=== PATIENT | female | born 1935 | race Caucasian/White ===

== ENCOUNTER → 2017-09-09 | Outpatient (CLI) | payer OTHER ==
[2015-10-29 11:16] VITALS: BP 131/61
[2017-09-09 09:23] LABS: BASOPHILS # (AUTO) 0.1 X10^3/uL (0.0-0.1); EOSINOPHILS # (AUTO) 0.2 x10^3/uL (0.0-0.2); EOSINOPHILS % (AUTO) 1.9 % (0.9-2.9); HEMATOCRIT 33.1 % (36.0-47.0); HEMOGLOBIN 10.7 g/dL (12.0-16.0); LYMPHOCYTES # (AUTO) 2.2 X10^3/uL (1.3-2.9); LYMPHOCYTES % (AUTO) 26.7 % (21.0-51.0); MEAN CORPUSCULAR HEMOGLOBIN 23.8 pg (27.0-34.0); MEAN CORPUSCULAR HGB CONC 32.3 g/dL (33.0-35.0); MEAN CORPUSCULAR VOLUME 73.5 fL (80.0-100.0); MEAN PLATELET VOLUME 8.9 fL (7.4-11.0); MONOCYTES # (AUTO) 0.7 x10^3/uL (0.3-0.8); NEUTROPHILS # (AUTO) 5.1 x10^3/uL (2.2-4.8); NEUTROPHILS % (AUTO) 61.4 % (42.0-75.0); PLATELET COUNT 315 X10^3/uL (150.0-450.0); RED BLOOD COUNT 4.51 X10^6/uL (3.5-5.4); RED CELL DISTRIBUTION WIDTH 17.7 % (11.6-16.5); WHITE BLOOD COUNT 8.3 X10^3/uL (3.6-10.0)
[2017-09-09 09:42] LABS: HYPOCHROMASIA SLIGHT; MICROCYTOSIS SLIGHT; PLATELET MORPHOLOGY COMMENT NORMAL (NORMAL)
[2017-09-09 10:16] LABS: ALANINE AMINOTRANSFERASE 35 Units/L (12-78); ALBUMIN 3.7 g/dL (3.4-5.0); ALKALINE PHOSPHATASE 80 Units/L (46-116); ASPARTATE AMINO TRANSFERASE 32 Units/L (15-37); BLOOD UREA NITROGEN 20 mg/dL (7-18); CARBON DIOXIDE 23.8 mmol/L (21-32); CHLORIDE 104 mmol/L (98-107); CHOL/HDL RATIO 4.5 (0.0-5.0); CHOLESTEROL 204 mg/dL (0-200); COR NA(FOR HYPERGLY) 140 mmol/L (136-145); CREATININE 0.74 mg/dL (0.55-1.02); HDL CHOLESTEROL 45 mg/dL (40-60); SODIUM 139 mmol/L (136-145); TOTAL PROTEIN 8.1 g/dL (6.4-8.2); TRIGLYCERIDES 134 mg/dL (0-150); eGFR BLACK RACES > 60 (>60); eGFR NON BLACK RACES > 60 (>60)
[2017-09-15 06:58] LABS: T3 REVERSE 14.9 ng/dL (9.0-27.0)
== END ==
LOC: LAB 08:36
PROVIDERS: ATTEND Obstetrics & Gynecology Obstetrics
DX: E03.8 Other specified hypothyroidism (principal); I10 Essential (primary) hypertension
CPT/HCPCS: 36415; 80053; 80061; 83525; 84443; 84481; 84482; 85025

== ENCOUNTER 2019-03-29 15:20 | Inpatient (IN) ==
--- NOTE | 2019-03-29 15:52 | DR.GENAD ---
HPI Time Seen Time Seen by Provider: 03/29/19 15:33 PMH PMH Past Medical History: Hypertension and Hypothyroidism Past Surgical History: Yes Surgical History: , Mastectomy and Other Family History Family Medical History: Diabetes Mellitus, [place] and Hypertension Social History Do you use any recreational Drugs:: No infectious screening Isolation: Standard PE Vital Signs Vitals: Temperature 98.1 F Pulse Rate [Standing] 89 Pulse Rate [Sitting] 77 Pulse Rate [Lying] 76 Pulse Rate 73 Respiratory Rate 20 Blood Pressure [Left Arm] 161/70 Blood Pressure [Standing] 128/58 Blood Pressure [Sitting] 140/86 Blood Pressure [Lying] 146/65 Blood Pressure 145/64 O2 Sat by Pulse Oximetry 80 ROR Labs Reviewed Result Diagrams: 03/29/19 16:04 03/29/19 16:04 Laboratory: WBC 6.0 X10^3/uL (3.6-10.0) 03/29/19 16:04 RBC 3.30 X10^6/uL (3.5-5.4) L 03/29/19 16:04 Hgb 8.4 g/dL (12.0-16.0) L 03/29/19 16:04 Hct 26.4 % (36.0-47.0) L 03/29/19 16:04 MCV 80.0 fL (80.0-100.0) 03/29/19 16:04 MCH 25.5 pg (27.0-34.0) L 03/29/19 16:04 MCHC 31.9 g/dL (33.0-35.0) L 03/29/19 16:04 RDW 18.7 % (11.6-16.5) H 03/29/19 16:04 Plt Count 229 X10^3/uL (150.0-450.0) 03/29/19 16:04 Plt Count Comment Adequate (ADEQUATE) 03/29/19 16:04 MPV 7.8 fL (7.4-11.0) 03/29/19 16:04 Neut % (Auto) 64.9 % (42.0-75.0) 03/29/19 16:04 Lymph % (Auto) 24.6 % (21.0-51.0) 03/29/19 16:04 O'Brien % (Auto) 8.2 % (0.0-13.0) 03/29/19 16:04 Eos % (Auto) 1.5 % (0.9-2.9) 03/29/19 16:04 Baso % (Auto) 0.8 % (0.2-1.0) 03/29/19 16:04 Neut # (Auto) 3.9 x10^3/uL (2.2-4.8) 03/29/19 16:04 Lymph # (Auto) 1.5 X10^3/uL (1.3-2.9) 03/29/19 16:04 O'Brien # (Auto) 0.5 x10^3/uL (0.3-0.8) 03/29/19 16:04 Eos # (Auto) 0.1 x10^3/uL (0.0-0.2) 03/29/19 16:04 Baso # (Auto) 0.0 X10^3/uL (0.0-0.1) 03/29/19 16:04 Absolute Nucleated RBC 0.0 /100WBC 03/29/19 16:04 Plt Morphology Comment Normal (NORMAL) 03/29/19 16:04 RBC Morphology Abnormal (NORMAL) A 03/29/19 16:04 Hypochromasia Slight A 03/29/19 16:04 Anisocytosis Slight A 03/29/19 16:04 Sodium 141 mmol/L (136-145) 03/29/19 16:04 Corrected Sodium 142 mmol/L (136-145) 03/29/19 16:04 Potassium 4.3 mmol/L (3.5-5.1) 03/29/19 16:04 Chloride 106 mmol/L (98-107) 03/29/19 16:04 Carbon Dioxide 26.2 mmol/L (21-32) 03/29/19 16:04 BUN 21 mg/dL (7-18) H 03/29/19 16:04 Creatinine 0.81 mg/dL (0.55-1.02) 03/29/19 16:04 Est GFR (MDRD) Af Amer > 60 (>60) 03/29/19 16:04 Est GFR (MDRD) Non-Af > 60 (>60) 03/29/19 16:04 Glucose 128 mg/dL (65-99) H 03/29/19 16:04 Calcium 8.5 mg/dL (8.5-10.1) 03/29/19 16:04 Corrected Calcium 9.4 mg/dL (8.5-10.1) 03/29/19 16:04 Total Bilirubin 0.20 mg/dL (0.2-1.0) 03/29/19 16:04 AST 28 Units/L (15-37) 03/29/19 16:04 ALT 20 Units/L (12-78) 03/29/19 16:04 Alkaline Phosphatase 175 Units/L (46-116) H 03/29/19 16:04 Creatine Kinase 143 Units/L (26-192) 03/29/19 16:04 CK-MB (CK-2) 1.1 ng/mL (0-4.0) 03/29/19 16:04 CK/CKMB % Calc 0.8 % (<4) 03/29/19 16:04 Troponin I < 0.02 ng/mL (0-1.5) 03/29/19 16:04 Total Protein 6.3 g/dL (6.4-8.2) L 03/29/19 16:04 Albumin 2.9 g/dL (3.4-5.0) L 03/29/19 16:04 Globulin 3.4 g/dL (2.5-4.5) 03/29/19 16:04 Albumin/Globulin Ratio 0.9 Ratio (1.1-2.1) L 03/29/19 16:04 Opioid Opioid Risk Tool Age (Merrick box if 16-45): Yes Total: 1 Total Score Risk Category: Low Risk Copyright: David GUZMÁN predicting aberrant behaviors
[2019-03-29 16:14] LABS: BASOPHILS % (AUTO) 0.8 % (0.2-1.0); EOSINOPHILS # (AUTO) 0.1 x10^3/uL (0.0-0.2); EOSINOPHILS % (AUTO) 1.5 % (0.9-2.9); HEMATOCRIT 26.4 % (36.0-47.0); HEMOGLOBIN 8.4 g/dL (12.0-16.0); LYMPHOCYTES # (AUTO) 1.5 X10^3/uL (1.3-2.9); LYMPHOCYTES % (AUTO) 24.6 % (21.0-51.0); MEAN CORPUSCULAR HEMOGLOBIN 25.5 pg (27.0-34.0); MEAN CORPUSCULAR HGB CONC 31.9 g/dL (33.0-35.0); MEAN PLATELET VOLUME 7.8 fL (7.4-11.0); MONOCYTES # (AUTO) 0.5 x10^3/uL (0.3-0.8); MONOCYTES % (AUTO) 8.2 % (0.0-13.0); NEUTROPHILS # (AUTO) 3.9 x10^3/uL (2.2-4.8); NEUTROPHILS % (AUTO) 64.9 % (42.0-75.0); PLATELET COUNT 229 X10^3/uL (150.0-450.0); RED CELL DISTRIBUTION WIDTH 18.7 % (11.6-16.5)
[2019-03-29 16:16] LABS: PLATELET MORPHOLOGY COMMENT NORMAL (NORMAL)
[2019-03-29] MEDS ORDERED: NS 1000 ML 1,000 ML ONE (16:18)
[2019-03-29 16:20] LABS: ANISOCYTOSIS SLIGHT; HYPOCHROMASIA SLIGHT
--- NOTE | 2019-03-29 16:21 | RAD ---
HISTORY: Shortness of breath. Prior history hypertension, CVA and breast cancer. Study: Single-view chest Comparison: 01/10/2019. Findings: Midline. Heart size is normal. There is atherosclerotic calcification aortic arch. There is hyperinflation of the lungs with emphysematous changes as well as increased interstitial markings bilaterally, compatible with COPD. No CHF, infiltrate, pleural fluid or pneumothorax is seen. No evidence of pulmonary nodule is seen. There is a left-sided breast implant. Osseous structures are intact. IMPRESSION: COPD without acute cardiopulmonary disease. Reported By:
[2019-03-29 16:27] LABS: BLOOD UREA NITROGEN 21 mg/dL (7-18); CALCIUM 8.5 mg/dL (8.5-10.1); CARBON DIOXIDE 26.2 mmol/L (21-32); CHLORIDE 106 mmol/L (98-107); COR NA(FOR HYPERGLY) 142 mmol/L (136-145); CREATININE 0.81 mg/dL (0.55-1.02); SODIUM 141 mmol/L (136-145); TROPONIN I < 0.02 ng/mL (0-1.5); eGFR NON BLACK RACES > 60 (>60)
[2019-03-29 16:31] LABS: ALANINE AMINOTRANSFERASE 20 Units/L (12-78); ALBUMIN 2.9 g/dL (3.4-5.0); ALKALINE PHOSPHATASE 175 Units/L (46-116); ASPARTATE AMINO TRANSFERASE 28 Units/L (15-37); CKMB % 0.8 % (<4); COR CA(FOR HYPOALB) 9.4 mg/dL (8.5-10.1); CREATINE KINASE 143 Units/L (26-192); CREATINE KINASE MB 1.1 ng/mL (0-4.0); TOTAL PROTEIN 6.3 g/dL (6.4-8.2)
[2019-03-29] MEDS: NS 1000 ML 1,000 ML IV SCH (16:42)
[2019-03-29 21:16] VITALS: BMI 16.5
[2019-03-29 23:39] LABS: CKMB % 0.8 % (<4); CREATINE KINASE 144 Units/L (26-192); CREATINE KINASE MB 1.2 ng/mL (0-4.0); TROPONIN I < 0.02 ng/mL (0-1.5)
[2019-03-30 01:00] LABS: BILIRUBIN,URINE NEGATIVE (NEGATIVE); BLOOD/HEMOGLOBIN,URINE NEGATIVE (NEGATIVE); GLUCOSE, URINE NEGATIVE (NEGATIVE); KETONES,URINE NEGATIVE (NEGATIVE); LEUKOCYTE ESTERASE ,URINE 3+ (NEGATIVE); NITRITES,URINE NEGATIVE (NEGATIVE); PROTEIN,URINE NEGATIVE (NEGATIVE); UROBILINOGEN,URINE NORMAL (NORMAL)
[2019-03-30 01:01] LABS: APPEARANCE,URINE CLEAR (CLEAR); COLOR,URINE YELLOW (YELLOW)
[2019-03-30 01:08] LABS: BACTERIA,URINE TRACE /HPF (NEGATIVE); RBC,URINE NONE SEEN /HPF (0-3); SQUAMOUS EPITHELIAL CELL,UR RARE /HPF (NEGATIVE)
[2019-03-30] MEDS: NS 1000 ML 1,000 ML IV SCH ×3 (02:29→17:38)
[2019-03-30 06:25] LABS: BASOPHILS # (AUTO) 0.1 X10^3/uL (0.0-0.1); BASOPHILS % (AUTO) 1.3 % (0.2-1.0); EOSINOPHILS # (AUTO) 0.1 x10^3/uL (0.0-0.2); HEMATOCRIT 25.8 % (36.0-47.0); HEMOGLOBIN 8.2 g/dL (12.0-16.0); LYMPHOCYTES # (AUTO) 1.5 X10^3/uL (1.3-2.9); LYMPHOCYTES % (AUTO) 28.2 % (21.0-51.0); MEAN CORPUSCULAR HEMOGLOBIN 25.3 pg (27.0-34.0); MEAN CORPUSCULAR HGB CONC 31.7 g/dL (33.0-35.0); MEAN CORPUSCULAR VOLUME 79.7 fL (80.0-100.0); MEAN PLATELET VOLUME 8.1 fL (7.4-11.0); MONOCYTES # (AUTO) 0.5 x10^3/uL (0.3-0.8); NEUTROPHILS # (AUTO) 3.1 x10^3/uL (2.2-4.8); NEUTROPHILS % (AUTO) 59.5 % (42.0-75.0); PLATELET COUNT 90 X10^3/uL (150.0-450.0); RED BLOOD COUNT 3.24 X10^6/uL (3.5-5.4); RED CELL DISTRIBUTION WIDTH 18.2 % (11.6-16.5); WHITE BLOOD COUNT 5.3 X10^3/uL (3.6-10.0)
[2019-03-30 06:45] LABS: PLATELET MORPHOLOGY COMMENT NORMAL (NORMAL)
[2019-03-30 06:47] LABS: ALANINE AMINOTRANSFERASE 20 Units/L (12-78); ALBUMIN 2.5 g/dL (3.4-5.0); ALKALINE PHOSPHATASE 153 Units/L (46-116); ASPARTATE AMINO TRANSFERASE 30 Units/L (15-37); BLOOD UREA NITROGEN 15 mg/dL (7-18); CHLORIDE 110 mmol/L (98-107); CKMB % 0.8 % (<4); COR CA(FOR HYPOALB) 9.2 mg/dL (8.5-10.1); CREATINE KINASE 136 Units/L (26-192); CREATINE KINASE MB 1.1 ng/mL (0-4.0); CREATININE 0.63 mg/dL (0.55-1.02); SODIUM 142 mmol/L (136-145); TOTAL PROTEIN 5.6 g/dL (6.4-8.2); TROPONIN I < 0.02 ng/mL (0-1.5); eGFR NON BLACK RACES > 60 (>60)
[2019-03-30] MEDS: SYNTHROID 50 mcg TAB PO SCH (08:33)
[2019-03-30] MEDS: PROCARDIA XL PO SCH ×2 (08:33→08:45)
[2019-03-30] MEDS: COZAAR PO SCH (08:33)
[2019-03-30] MEDS: ZOLOFT PO SCH (08:34)
[2019-03-30] MEDS ORDERED: ROCEPHIN VIAL 1 GRAM IM SCH (09:00)
[2019-03-30] MEDS ORDERED: PLAVIX PO SCH (09:00)
[2019-03-30] MEDS ORDERED: NS 500 ML IV 500 ML IV ONE (09:01)
[2019-03-30] MEDS: ROCEPHIN VIAL 1 GRAM 1 G in NS 100 ML IV + SPIKE MINIBAG* 100 ML IV SCH (09:30)
--- NOTE | 2019-03-30 16:42 | DR.CONSULT ---
Consult - Consultation for Day of: Date: 03/30/19 - Chief Complaint Chief Complaint: Patient referred for anemia. Patient with complaints of nausea. - History of Present Illness History of Present Illness: Patient is a 83yo female who was referred for anemia. Patient with complaints of nausea x 3-4 days. Patient states she did have melena 6 weeks ago with iron and hematochezia x 1 episode 1 month ago, states she does have ocassional constipation and diarrhea. Patient denies dysphagia, dyspepsia, vomiting, abdominal pain. Patient states she has never had a colonoscopy or EGD. Hgb 8.2, Hct 25.8, Iron 17, BUN 15, Creatinine 0.63. Hemoccult positive. Patient states she was on plavix but hasnt taken in several weeks. - Past Medical History Past Medical History: Anxiety, CVA, Depression, Hypertension, Hypothyroidism - Past Surgical History Surgical History: Appendectomy, , Mastectomy, Other (surgery to carotid artery) - Family History Family Medical History: Diabetes Mellitus, [place], Hypertension - Social History Does patient currently use any type of tobacco product: No Type of Tobacco Use: None Does any household member use tobacco: No Alcohol Use: None Drug Use: None - Medications Home Medications: morphine Allergy (Verified 03/29/19 21:23) Penicillins Allergy (Verified 03/29/19 21:23) CONTINUE taking the following medications clopidogrel 75 mg PO DAILY 03/29/19 [History] sertraline 50 mg PO DAILY 03/29/19 [History] - Review of Systems Gastrointestinal: Nausea. denies: See HPI, Vomiting, Abdominal Pain, Diarrhea, Constipation, Melena, Hematochezia, Other - Physical Exam Vital Signs: Temperature 98.2 F Pulse Rate [Left Brachial] 78 Pulse Rate [Standing] 89 Pulse Rate [Sitting] 77 Pulse Rate [Lying] 76 Pulse Rate 73 Respiratory Rate 18 Blood Pressure [Right Arm] 162/72 Blood Pressure [Left Arm] 153/82 Blood Pressure [Standing] 128/58 Blood Pressure [Sitting] 140/86 Blood Pressure [Lying] 146/65 Blood Pressure 159/65 O2 Sat by Pulse Oximetry 95 Oriented: Normal Eyes: Normal Ear: Normal Nose: Normal Throat: Normal Respiratory: Clear Throughout Cardiovascular: Normal : Normal Auscultation: Bowel Sounds: Normal Palpation: Normal, Other (no distention). negative: Spleen Enlarged, Liver Enlarged, Mass Pulsatile Tenderness: Normal Skin: Normal Musculoskeletal: Normal Psychiatric: Normal Mood Description: Calm Affect: Normal Speech Pattern: Clear, Appropriate - Plan Plan: Assessment. 1. Anemia, Occult GI Bleed. Plan. 1. Monitor Hgb, Transfuse as needed, Protonix IV, EGD in am. Plan reviewed with - Allergies Allergies/Adverse Reactions: Allergies Allergy/AdvReac Type Severity Reaction Status Date / Time morphine Allergy Verified 03/29/19 21:23 Penicillins Allergy Verified 03/29/19 21:23
[2019-03-30] MEDS: PROTONIX INJ 40 MG VIAL IVP SCH (20:53)
[2019-03-30] MEDS ORDERED: NS 250 ML IV 250 ML IV ONE (21:08)
[2019-03-31 00:47] LABS: HEMATOCRIT 37.2 % (36.0-47.0)
[2019-03-31] MEDS: NS 1000 ML 1,000 ML IV SCH ×4 (01:11→19:21)
[2019-03-31] MEDS ORDERED: NS 100 ML IV 100 ML with VENOFER 400 MG IV NR ×2 (08:53)
[2019-03-31] MEDS ORDERED: ZOFRAN INJ 4 MG VIAL IVP PRN (08:53)
[2019-03-31] MEDS ORDERED: ZOFRAN INJ 4 MG VIAL ONE (09:30)
[2019-03-31] MEDS: PROTONIX INJ 40 MG VIAL IVP SCH ×2 (10:00→20:19)
[2019-03-31] MEDS: ROCEPHIN VIAL 1 GRAM 1 G in NS 100 ML IV + SPIKE MINIBAG* 100 ML IV SCH (10:00)
[2019-03-31] MEDS: FOLIC ACID TAB 1 MG PO SCH (10:58)
[2019-03-31] MEDS: COZAAR PO SCH ×2 (10:58→14:26)
[2019-03-31] MEDS: SYNTHROID 50 mcg TAB PO SCH ×2 (10:59→14:26)
[2019-03-31] MEDS ORDERED: DIPRIVAN VIAL 20 ML ONE (13:10)
[2019-03-31] MEDS ORDERED: STERILE WATER IRRIGATION IR ONE (13:15)
[2019-03-31] MEDS: ZOLOFT PO SCH (14:26)
[2019-03-31] MEDS: PROCARDIA XL PO SCH (14:37)
[2019-03-31] MEDS ORDERED: DIPRIVAN VIAL ONE (15:08)
[2019-04-01] MEDS: NS 1000 ML 1,000 ML IV SCH ×2 (03:30→10:35)
[2019-04-01 06:22] LABS: BASOPHILS # (AUTO) 0.1 X10^3/uL (0.0-0.1); BASOPHILS % (AUTO) 1.3 % (0.2-1.0); EOSINOPHILS # (AUTO) 0.1 x10^3/uL (0.0-0.2); EOSINOPHILS % (AUTO) 1.6 % (0.9-2.9); HEMATOCRIT 35.6 % (36.0-47.0); HEMOGLOBIN 11.6 g/dL (12.0-16.0); LYMPHOCYTES # (AUTO) 1.1 X10^3/uL (1.3-2.9); LYMPHOCYTES % (AUTO) 18.6 % (21.0-51.0); MEAN CORPUSCULAR HEMOGLOBIN 26.5 pg (27.0-34.0); MEAN CORPUSCULAR HGB CONC 32.4 g/dL (33.0-35.0); MEAN CORPUSCULAR VOLUME 81.7 fL (80.0-100.0); MEAN PLATELET VOLUME 9.1 fL (7.4-11.0); MONOCYTES # (AUTO) 0.6 x10^3/uL (0.3-0.8); MONOCYTES % (AUTO) 10.6 % (0.0-13.0); NEUTROPHILS # (AUTO) 4.1 x10^3/uL (2.2-4.8); NEUTROPHILS % (AUTO) 67.9 % (42.0-75.0); PLATELET COUNT 230 X10^3/uL (150.0-450.0); RED BLOOD COUNT 4.36 X10^6/uL (3.5-5.4); RED CELL DISTRIBUTION WIDTH 17.9 % (11.6-16.5)
[2019-04-01 06:30] LABS: ALANINE AMINOTRANSFERASE 19 Units/L (12-78); ALBUMIN 2.5 g/dL (3.4-5.0); ALKALINE PHOSPHATASE 155 Units/L (46-116); ASPARTATE AMINO TRANSFERASE 33 Units/L (15-37); BLOOD UREA NITROGEN 7 mg/dL (7-18); CALCIUM 8.1 mg/dL (8.5-10.1); CARBON DIOXIDE 27.2 mmol/L (21-32); CHLORIDE 108 mmol/L (98-107); COR CA(FOR HYPOALB) 9.3 mg/dL (8.5-10.1); SODIUM 143 mmol/L (136-145); TOTAL PROTEIN 5.7 g/dL (6.4-8.2); eGFR NON BLACK RACES > 60 (>60)
[2019-04-01] MEDS: COZAAR PO SCH (08:16)
[2019-04-01] MEDS: ROCEPHIN VIAL 1 GRAM 1 G in NS 100 ML IV + SPIKE MINIBAG* 100 ML IV SCH (08:16)
[2019-04-01] MEDS: FOLIC ACID TAB 1 MG PO SCH (08:16)
[2019-04-01] MEDS: PROTONIX INJ 40 MG VIAL IVP SCH (08:16)
[2019-04-01] MEDS: PROCARDIA XL PO SCH (08:17)
[2019-04-01] MEDS: SYNTHROID 50 mcg TAB PO SCH (08:17)
[2019-04-01] MEDS: ZOLOFT PO SCH (08:17)
[2019-04-01] MEDS ORDERED: BENICAR TAB 40 MG PO ONE (08:19)
[2019-04-01] MEDS ORDERED: BENICAR TAB 40 MG PO SCH (09:00)
[2019-04-01 12:03] VITALS: BP 155/52
== END 2019-04-01 13:56 | disposition home health service (06) | DRG 812 ==
LOC: MED/SURG 15:20 → ER 15:20 → MED/SURG 20:45
PROVIDERS: ADMIT Internal Medicine; ATTEND Obstetrics & Gynecology Obstetrics
CPT/HCPCS: 36415; 36430; 71010; 71045; 80053; 81001; 82270; 82550; 82553; 82607; 82728; 82746; 83540; 84466; 84484; 85014; 85018; 85025; 86850; 86900; 86901; 86922; 87086; 93005; 94760; 96365; 96367; 97162; 97165; 99100; 99284; A4217; A4222; C9113; P9016; G0378; J0696; J1756; J2405; J2704; J7030; J7040; J7050

== ENCOUNTER 2019-06-18 15:54 | Observation (INO) ==
--- NOTE | 2019-06-18 16:00 | DR.EXTPAIN ---
HPI Time seen Time Seen by Provider: 06/18/19 16:00 HPI Comment HPI Comment: 83 yo f w/ prev hx of metastatic cancer/ on hospice presents s/p GLF. Unwitnessed glf. Found laying on right side c/o right hip pain. Unknown if head strike or loc. Limited hx due to dementia. Source History Provided: EMS Mode of arrival Mode of Arrival: EMS PMH PMH Past Medical History: Anxiety, CVA, Depression, Hypertension and Hypothyroidism Past Surgical History: Yes Surgical History: Appendectomy, , Mastectomy and Other (surgery to carotid artery) Family History Family Medical History: Diabetes Mellitus, [place] and Hypertension Social History Do you use any recreational Drugs:: No infectious screening Isolation: Standard ROS Review of Systems Musculoskeletal: Joint Pain Unable to Obtain Due To: Dementia PE Vital Signs Vitals: Temperature 98.3 F Pulse Rate 81 Respiratory Rate 16 Blood Pressure [Right Arm] 155/52 Blood Pressure 185/83 O2 Sat by Pulse Oximetry 100 General Limitations: Altered Mental Status (dementia. a/o x 1. Pleasant, cooperative, mild pain distress) General Appearance: Alert and In No Apparent Distress Head Head Exam: Other (1 cm soft tissue hematoma right forehead, no laceration, remainder scalp atraumatic ) Eyes Eye exam: Normal Appearance, PERRL and EOMI ENT ENT Exam: Normal Exam and TM's Normal Bilaterally Neck Neck Exam: Normal Inspection; negative Tenderness Chest Chest Inspection: Normal Inspection Respiratory Respiratory Exam: Normal Lung Sounds Bilat Cardiovascular Cardiovascular Exam: Regular Rate and Normal Rhythm Abdominal Exam Abdominal Exam: Normal Inspection, Normal Bowel Sounds and Soft Extremities Extremities Exam: Normal Inspection Back Back Exam: Normal Inspection Neurological Neurological Exam: Alert, Oriented X3 and CN II-XII Intact Psychiatric Psychiatric Exam: Normal Affect and Normal Mood Skin Skin Exam: Warm, Dry, Intact and Normal Color Other Exam Other Exam: RLE: shortened and externally rotated. diffuse right hip tenderness/ swelling. Good DP pulse, sensation intact. LLE atraumatic and non tender. Bilat upper extremities non tender and without deformity. MDM Differential Diagnosis Differential Diagnosis: Contusion, Fracture, Hematoma, Laceration, Neurovascular Injury and Open Fracture COURSE Treatment Treatment: 83 yo f w/ prev hx of colon ca w/ liver mets, dementia on hospice presents s/p glf. Unwitnessed. + head strike. Plain films demonstrated right interochenteric hip fx. Given narcotic analgesics w/ control of pain. CT head/ neck unremarkable for traumatic injury. Patient is a dnr. Her home hospice company ahs inpatient bed for her to continue hospice. Family wished her to be a dnr and no surgical intervention at this time. Will admit to observation. d/w Dr koch whom agrees. Education/Counseling Education/Counseling: Patient and Family Educated On: Treatment, Diagnosis, Prognosis and Needs for Follow Up ROR XRAY XRAY Interpreted by: Radiologist XRAY Findings: no traumatic injuries head or c spine. Pelvix x ray w/ right hip fx Opioid Opioid Risk Tool Age (Merrick box if 16-45): No History of Preadolescent Sexual Abuse: No Total: 0 Total Score Risk Category: Low Risk Copyright: David GUZMÁN predicting aberrant behaviors Diagnosis Discharge Problem: Closed hip fracture Qualifiers: Encounter type: initial encounter Laterality: right Qualified Code(s): S72.001A - Fracture of unspecified part of neck of right femur, initial encounter for closed fracture Dementia Qualifiers: Dementia type: unspecified type Dementia behavioral disturbance: without behavioral disturbance Qualified Code(s): F03.90 - Unspecified dementia without behavioral disturbance Colon cancer Qualifiers: Colon location: unspecified part of colon Qualified Code(s): C18.9 - Malignant neoplasm of colon, unspecified
[2019-06-18] MEDS ORDERED: ZOFRAN INJ 4 MG VIAL IVP ONE (16:25)
[2019-06-18] MEDS ORDERED: DILAUDID INJ IVP ONE (16:26)
--- NOTE | 2019-06-18 16:26 | RAD ---
HISTORYFellSTUDYRight femur, four viewsCOMPARISONNoneFINDINGSThere is an acute intertrochanteric fracture of the right femur with slight displacement of lesser trochanter fragments. The femoral head is in normal position. Underlying osteopenia is age-appropriate. No bone destruction is seen.IMPRESSIONRight femoral fracture.Electronically signed by: GARFIELD MENESES (Jun 18, 2019 16:25:31)
[2019-06-18] MEDS ORDERED: DILAUDID INJ ONE (16:27)
[2019-06-18] MEDS ORDERED: ZOFRAN INJ 4 MG VIAL ONE (16:27)
--- NOTE | 2019-06-18 16:29 | RAD ---
HISTORYFellSTUDYAP pelvisCOMPARISONCT pelvis, 03/08/2018FINDINGSThere is an acute comminuted intertrochanteric fracture of the right femur. The pelvis appears normal otherwise. There is extensive arteriosclerotic calcification. No osteolytic or osteoblastic disease is present.IMPRESSIONRight hip fracture.Electronically signed by: GARFIELD MENESES (Jun 18, 2019 16:29:14)
--- NOTE | 2019-06-18 16:58 | RAD ---
HISTORYFellSTUDYAP [id number]/05/2019FINDINGSContinued normal heart size with pulmonary hyperaeration and no evid ence for acute infiltrate, edema or pleural fluid.IMPRESSIONNo interval change; no acute chest findin gs.Electronically signed by: GARFIELD MENESES (Jun 18, 2019 16:57:20)
--- NOTE | 2019-06-18 17:07 | CT ---
HISTORYfell and landed on her right hip and she is having right hip and femur painSTUDYBRAIN W/O [id number]/19/2019.TECHNIQUEMultiple axial images of the brain were obtained from the skull base to the vertex without administration of IV contrast. Dose reduction techniques including Automated E xposure Control (AEC) and adjustment of mA and kV were utilized.FINDINGSEncephalomalacia changes of t he parietal and temporal regions on the right are grossly unchanged compatible with prior infarct. Th ere are scattered and confluent areas of periventricular, deep and subcortical white matter hypoatten uation bilaterally similar to the comparison study. There is diffuse ventricular, as well as, cistern al and sulcal prominence bilaterally. No acute intraparenchymal hemorrhage or mass can be identified. No extra-axial fluid collections are seen. No alteration in the attenuation of the brain parenchyma can be identified to suggest acute or subacute ischemic change. The extracranial structures are madeline sly unremarkable.IMPRESSION1. Changes of advancing chronological age without acute intracranial abnor mality.2. 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 White matter changes suggest ing chronic small vessel disease.Electronically signed by: ELISE DODSON (Jun 18, 2019 17:05:48)
--- NOTE | 2019-06-18 17:10 | CT ---
HISTORYfell and landed on her right hip and she is having right hip and femur painSTUDYCERVICAL SPINE W/O CONCOMPARISONTECHNIQUEMultiple axial images of the cervical spine were obtained from the skull base to the thoracic inlet without administration of IV contrast. Sagittal and coronal reformats were performed and reviewed. Dose reduction techniques including Automated Exposure Control (AEC) and adjustment of mA and kV were utilized.FINDINGSAlignment of the cervical spine is maintained. No evidence for acute cortical disruption or subluxation can be seen. The central canal remains free of compromise from bony fragments or significant soft tissue encroachment. The posterior elements appear unremarkable. The prevertebral soft tissues are normal in their appearance. Calcification at the right carotid bulb. In addition, the surrounding paraspinous soft tissues are unremarkable.Moderate degenerative changes of the cervical spine are incidentally noted.IMPRESSIONNo evidence for traumatic injury of the cervical spine.Electronically signed by: FERNIE PECK (Jun 18, 2019 17:09:45)
[2019-06-18] MEDS ORDERED: ZOFRAN INJ 4 MG VIAL IVP PRN (17:11)
[2019-06-18 17:41] LABS: BILIRUBIN,URINE NEGATIVE (NEGATIVE); BLOOD/HEMOGLOBIN,URINE NEGATIVE (NEGATIVE); GLUCOSE, URINE NEGATIVE (NEGATIVE); KETONES,URINE NEGATIVE (NEGATIVE); LEUKOCYTE ESTERASE ,URINE 1+ (NEGATIVE); NITRITES,URINE NEGATIVE (NEGATIVE); PROTEIN,URINE 1+ (NEGATIVE); UROBILINOGEN,URINE NORMAL (NORMAL)
[2019-06-18 17:50] LABS: APPEARANCE,URINE SLIGHTLY HAZY (CLEAR); BACTERIA,URINE TRACE /HPF (NEGATIVE); COLOR,URINE YELLOW (YELLOW); MUCUS,URINE MODERATE /HPF (NEGATIVE); RBC,URINE 0-2 /HPF (0-3); SQUAMOUS EPITHELIAL CELL,UR FEW /HPF (NEGATIVE)
[2019-06-18 19:10] VITALS: BMI 16.1
[2019-06-19] MEDS: DILAUDID INJ IVP PRN ×2 (07:10→12:09)
[2019-06-19 12:29] VITALS: BP 120/60
== END 2019-06-19 12:18 | disposition hospice, inpatient (51) ==
LOC: ICU 15:54 → ER 15:54 → ICU 18:01
PROVIDERS: ADMIT Obstetrics & Gynecology Obstetrics; ATTEND Obstetrics & Gynecology Obstetrics
DX: Z79.899 Other long term (current) drug therapy; W18.39XA Other fall on same level, initial encounter; C78.7 Secondary malignant neoplasm of liver and intrahepatic bile duct; Z51.5 Encounter for palliative care; F41.8 Other specified anxiety disorders; S72.001A Fracture of unspecified part of neck of right femur, initial encounter for closed fracture; F03.90 Unspecified dementia, unspecified severity, without behavioral disturbance, psychotic disturbance, mood disturbance, and anxiety; Y92.9 Unspecified place or not applicable; M25.551 Pain in right hip; I10 Essential (primary) hypertension; C18.0 Malignant neoplasm of cecum; E03.8 Other specified hypothyroidism
CPT/HCPCS: 51702; 70450; 71010; 71045; 72125; 72170; 73552; 81001; 87086; 96365; 96374; 96375; 99284; A4222; G0378; J1170; J2405